=== PATIENT | male | born 1990 | race Caucasian/White ===

== ENCOUNTER 2017-04-23 08:25 | Emergency (ER) | payer OTHER ==
[~2017-04-23] VITALS: Ht 15.2 cm; Wt 110.0 kg
[2017-04-23] MEDS ORDERED: CLARITIN 1010 MG/TAB PO (08:41)
[2017-04-23] MEDS ORDERED: BACTRIM DS TAB1 EACH PO (09:36)
[2017-04-23] MEDS ORDERED: ULTRAM50 M1 PO (09:36)
[2017-04-23 09:49] VITALS: BP 130/79
== END 2017-04-23 09:57 | disposition home or self-care (01) ==
LOC: ED 08:25
DX: L03.116 Cellulitis of left lower limb (principal); Z88.5 Allergy status to narcotic agent; Z88.0 Allergy status to penicillin